=== PATIENT | female | born 2005 | race Caucasian/White ===

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

== ENCOUNTER 2023-03-17 09:55 | Inpatient (IN) | payer OTHER ==
[2023-03-17] MEDS: ELECTROLYTE-148 SOLN 1,000 ML IV SCH (10:30)
[2023-03-17] MEDS ORDERED: AMPICILLIN SODIUM 2 GM VIAL ONE (10:31)
[2023-03-17] MEDS: AMPICILLIN - 2 GM in SODIUM CHLORIDE 100 ML IVPB ONE (10:35)
[2023-03-17] MEDS ORDERED: OXYTOCIN 30 UNITS in 0.9% NS 30 UNIT/500 ML INFUS.BAG IVPB ONE (11:15)
[2023-03-17] MEDS: OXYTOCIN 30 UNITS in 0.9% NS 30 UNIT/500 ML INFUS.BAG IVPB SCH (11:20)
[2023-03-17 11:35] VITALS: BMI 35.3
[2023-03-17 13:35] LABS: BASO % 0.1 % (0-2.0); EOS % 0.4 % (0-4.5); HEMATOCRIT 40.8 % (32.4-45.2); HEMOGLOBIN 13.6 GM/dL (10.7-15.3); LYMPH % 10.1 % (8-40); MCH 31.4 pg (25.7-33.7); MCHC 33.3 g/dl (32.0-36.0); MEAN CELL VOLUME 94.2 fl (80-96); MEAN PLT VOLUME 8.2 fl (7.5-11.1); MONO % 6.4 % (3.8-10.2); PLATELET COUNT 288 10^3/uL (134-434); RBC 4.33 M/mm3 (3.60-5.2); RDW 14.4 % (11.6-15.6); WHITE BLOOD COUNT 10.9 K/mm3 (4.0-10.0)
[2023-03-17 13:39] LABS: INR 0.96 (0.83-1.09); PROTHROMBIN TIME (PATIENT) 11.1 SEC (9.7-13.0)
[2023-03-17 13:41] LABS: ACTIVATED PTT 27.9 SECONDS (25.2-36.5)
[2023-03-17 13:51] LABS: CALCIUM 9.5 mg/dL (8.5-10.1)
[2023-03-17 13:52] LABS: BLOOD UREA NITROGEN 7.6 mg/dL (7-18)
[2023-03-17 13:57] LABS: CREATININE 0.5 mg/dL (0.55-1.3)
[2023-03-17] MEDS ORDERED: AMPICILLIN SODIUM 1 GM VIAL ONE ×3 (14:11→22:01)
[2023-03-17] MEDS: AMPICILLIN - 1 GM in SODIUM CHLORIDE 100 ML IVPB SCH (14:20)
[2023-03-17] MEDS ORDERED: BUTORPHANOL TARTRATE 2 MG/ML VIAL ONE (15:02)
[2023-03-17] MEDS ORDERED: PROMETHAZINE HCL 25 MG/1 ML VIAL ONE (15:03)
[2023-03-17] MEDS: PROMETHAZINE HCL 25 MG/1 ML VIAL IM ONE (15:10)
[2023-03-17] MEDS: BUTORPHANOL TARTRATE 1 MG/ML VIAL IVPUSH ONE (15:10)
[2023-03-17] MEDS ORDERED: FENTANYL/BUPIVACAINE/NS/PF - PCEA - 50 ML DISP.SYRIN EP ONE (20:34)
[2023-03-17] MEDS ORDERED: NALOXONE HCL 0.4 MG/ML VIAL IVPUSH PRN (20:37)
[2023-03-17] MEDS ORDERED: LIDO 2%/EPI 1:200000 PRESRVFRE (20 ML SDVIAL) ONE ×2 (20:39→22:06)
[2023-03-17] MEDS ORDERED: BUPIVACAINE HCL/PF 0.25% (2.5MG/ML) 10 ML VIAL ONE (20:39)
[2023-03-17] MEDS: FENTANYL/BUPIVACAINE/NS/PF - PCEA - 50 ML DISP.SYRIN EP SCH (20:50)
[2023-03-17] MEDS: CITRIC ACID/SODIUM CITRATE 30 ML UNIT-DOSE CUP PO ONE (22:00)
[2023-03-17] MEDS ORDERED: ONDANSETRON 4 MG/2 ML VIAL IVPUSH PRN (22:04)
[2023-03-17] MEDS ORDERED: ceFAZolin SODIUM 1 GM VIAL ONE (22:11)
[2023-03-17] MEDS ORDERED: SODIUM CHLORIDE 0.9% P/F 10 ML VIAL IJ ONE (22:11)
[2023-03-17] MEDS: CEFAZOLIN SODIUM 2 GM in DEXTROSE 5%-WATER 100 ML IVPB SCH (22:27)
[2023-03-17] MEDS ORDERED: morphine SULFATE/PF 1 MG/2 ML (2cc Syringe - QUVA) ONE (22:28)
[2023-03-17] MEDS ORDERED: PHENYLEPHRINE HCL 10 MG/1 ML SINGLE DOSE VIAL ONE (22:28)
[2023-03-17] MEDS ORDERED: OXYTOCIN 10 UNITS/ML VIAL ONE ×2 (22:38→22:46)
[2023-03-17] MEDS: METHYLERGONOVINE MALEATE 0.2 MG/1 ML AMP IM PRN (22:45)
[2023-03-17] MEDS ORDERED: MEPERIDINE HCL 25 MG/ML VIAL ONE (22:50)
[2023-03-17] MEDS ORDERED: ONDANSETRON 4 MG/2 ML VIAL ONE (23:03)
[2023-03-17] MEDS ORDERED: ACETAMINOPHEN 325 MG TABLET (FP) PO PRN (23:30)
[2023-03-17 23:51] LABS: CORD HCO3 22.9 mmHg (20-29); CORD PCO2 48.5 mmHg (30-78); CORD pH 7.292 (7.14-7.44)
[2023-03-17 23:54] LABS: CORD PCO2 57.6 mmHg (30-78); CORD pH 7.256 (7.14-7.44)
[2023-03-18] MEDS: OXYTOCIN 20 UNITS in 0.9% NS 20 UNIT/1,000 ML INFUS.BAG IV SCH (00:45)
[2023-03-18] MEDS ORDERED: OXYTOCIN 20 UNITS in 0.9% NS 20 UNIT/1,000 ML INFUS.BAG IV ONE (00:50)
[2023-03-18] MEDS ORDERED: FLU VACCINE (FLULAVAL) PF 60 MCG/0.5 ML SYRINGE 2023-2024 IM ONE (03:43)
[2023-03-18] MEDS ORDERED: DIPHTH,PERTUSS(ACELL),TET 0.5 ML DISP.SYRIN IM ONE (03:43)
[2023-03-18] MEDS: morphine SULFATE/PF 1 MG/2 ML (2cc Syringe - QUVA) EP ONE (04:21)
[2023-03-18 08:31] LABS: BASO % 0.2 % (0-2.0); EOS % 0.4 % (0-4.5); HEMATOCRIT 36.3 % (32.4-45.2); LYMPH % 8.6 % (8-40); MCH 31.1 pg (25.7-33.7); MCHC 33.1 g/dl (32.0-36.0); MEAN CELL VOLUME 93.9 fl (80-96); MEAN PLT VOLUME 8.6 fl (7.5-11.1); NEUT % 84.8 % (42.8-82.8); PLATELET COUNT 259 10^3/uL (134-434); RBC 3.86 M/mm3 (3.60-5.2); RDW 14.7 % (11.6-15.6); WHITE BLOOD COUNT 14.9 K/mm3 (4.0-10.0)
[2023-03-18] MEDS: ENOXAPARIN NA (PORCINE) 40 MG/0.4 ML DISP.SYRIN SQ SCH (09:33)
[2023-03-18] MEDS: SIMETHICONE 80 MG TAB.CHEW (FP) PO PRN (09:33)
[2023-03-18] MEDS: ACETAMINOPHEN 1000 MG/100 ML BAG IVPB PRN (09:35)
[2023-03-18] MEDS ORDERED: oxyCODONE HCL 5 MG TABLET PO PRN ×2 (11:30)
[2023-03-18] MEDS: IBUPROFEN 600 MG TABLET (FP) PO PRN (23:14)
[2023-03-18] MEDS ORDERED: BISACODYL 10 MG SUPP.RECT RC PRN (23:30)
[2023-03-19] MEDS: ACETAMINOPHEN 325 MG TABLET (FP) PO PRN (01:07)
[2023-03-19] MEDS: IBUPROFEN 600 MG TABLET (FP) PO PRN (17:29)
[2023-03-20 06:17] LABS: BASO % 0.3 % (0-2.0); EOS % 1.7 % (0-4.5); HEMATOCRIT 34.3 % (32.4-45.2); HEMOGLOBIN 11.4 GM/dL (10.7-15.3); MCH 31.6 pg (25.7-33.7); MCHC 33.2 g/dl (32.0-36.0); MEAN CELL VOLUME 95.2 fl (80-96); MEAN PLT VOLUME 8.2 fl (7.5-11.1); MONO % 7.2 % (3.8-10.2); NEUT % 73.8 % (42.8-82.8); PLATELET COUNT 269 10^3/uL (134-434); RDW 14.7 % (11.6-15.6); WHITE BLOOD COUNT 10.3 K/mm3 (4.0-10.0)
[2023-03-20 09:24] VITALS: BP 106/69; PULSE 99; RESP 17; TEMP 98
== END 2023-03-20 12:25 | disposition home or self-care (01) | DRG 540 ==
LOC: JDEL 09:55 → JLDR 10:10 → J3W 03-18 02:11
PROVIDERS: ADMIT Obstetrics & Gynecology; ATTEND Obstetrics & Gynecology
PROC: 10D00Z1 Extraction of Products of Conception, Low, Open Approach (ICD-10-PCS; principal; 2023-03-17)
DX: O62.0 Primary inadequate contractions (principal); O48.0 Post-term pregnancy; O77.0 Labor and delivery complicated by meconium in amniotic fluid; O69.1XX0 Labor and delivery complicated by cord around neck, with compression, not applicable or unspecified; O99.824 Streptococcus B carrier state complicating childbirth; Z3A.40 40 weeks gestation of pregnancy; Z37.0 Single live birth
CPT/HCPCS: 36415; 36600; 80048; 82803; 85025; 85610; 85730; 86780; 86850; 86900; 86901; J0131